=== PATIENT | female | born 1995 | race Caucasian/White ===

== ENCOUNTER → 2017-09-20 | Outpatient (CLI) | payer BC ==
[~2017-09-20] MED LIST: ALPR-429 PO; AMOX-559 PO; BUSP15TA69 PO; BUSP7.5T7 PO; CLON0.5T66 PO; ESCI10TA8 PO; ESCI20TA8 PO; ETON68IM SQ
[2017-09-20 17:06] LABS: PLATELET COUNT, AUTOMATED 266 K/uL (150-450)
== END ==
LOC: LAB 16:45
PROVIDERS: ATTEND Emergency Medicine
DX: E66.9 Obesity, unspecified (principal); F41.8 Other specified anxiety disorders
CPT/HCPCS: 36415; 82040; 82247; 82310; 82374; 82435; 82565; 82947; 84075; 84132; 84155; 84295; 84443; 84450; 84460; 84520; 85025

== ENCOUNTER → 2018-09-14 | Outpatient (CLI) | payer BC | LOC: RESP 20:58 | PROVIDERS: ATTEND Emergency Medicine | DX: G47.30 Sleep apnea, unspecified (principal) ==